=== PATIENT | male | born 1985 | race Hispanic/Latino ===

== ENCOUNTER 2023-07-09 08:20 | Day surgery (SDC) | payer BC, OTHER ==
[2023-07-06 15:46] LABS: Anion Gap 10.7 mEq/L (5.0-15.0); Potassium 3.7 mEq/L (3.5-5.1)
--- NOTE | 2023-07-08 14:31 | EKG ---
Test Date: 2023-07-06 Test Time: 15:21:39 [employer] Helper: MICA MEASUREMENT RESULTS: Intervals: Rate: 75 MS: 168 QRSD: 98 QT: 372 QTc: 415 [place]: P: 17 MS: 168 QRS: 51 T: 23 INTERPRETIVE STATEMENTS: Normal sinus rhythm Normal ECG No previous ECG available for comparison Electronically Signed On 07-08-23 14:24:31 CDT by Alan Newell
[2023-07-09] MEDS: NA CHLORIDE 0.9% 1,000 ML ONE (08:40)
[2023-07-09] MEDS ORDERED: FENTANYL CITR 100 MCG/2 ML ONE (09:58)
[2023-07-09] MEDS ORDERED: LIDOCAINE 2% MPF 5 ML VIAL ONE ×2 (09:58→10:37)
[2023-07-09] MEDS ORDERED: propofoL 200 MG/20 ML VIAL IV ONE ×2 (09:58→10:45)
[2023-07-09] MEDS ORDERED: MIDAZOLAM HCL 2 MG/2 ML INJ ONE (09:58)
[2023-07-09] MEDS ORDERED: KETOROLAC 30 MG/ML INJ ONE (09:58)
[2023-07-09] MEDS ORDERED: dexAMETHasone 10 MG/ML VIAL ONE (09:58)
[2023-07-09] MEDS ORDERED: ONDANSETRON 4 MG/2 ML VIAL ONE (09:58)
[2023-07-09] MEDS: CEFAZOLIN SODIUM 2 GM/VIAL ONE (10:30)
[2023-07-09] MEDS ORDERED: NS 0.9% VIAL 10 ML ONE ×2 (10:44→11:13)
[2023-07-09] MEDS ORDERED: NS 0.9% VIAL 20 ML ONE (10:45)
[2023-07-09] MEDS ORDERED: EPHEDRINE SULF 50 MG/ML VIAL ONE (11:01)
[2023-07-09] MEDS: BUPIVACAINE 0.25% PF 30 ML VIAL ONE (11:02)
--- NOTE | 2023-07-09 11:20 | P.OP ---
Preoperative diagnosis: Right Posterior Scapular Cyst Postoperative diagnosis: Right Posterior Scapular Cyst Primary procedure: Wide Local Excision of Right Posterior Scapular Cyst Anesthesia: GETA + Local Estimated blood loss: <1cc Specimen: Right Posterior Scapular Cyst Findings: Right Posterior Scapular Cyst 8cm x 5cm x 4cm Complications: None Transferred to: Recovery Room Condition: Good
[2023-07-09] MEDS: ALBUTEROL 2.5 MG/3 ML NEB SOL ONE (11:35)
[2023-07-09] MEDS: ONDANSETRON 4 MG/2 ML VIAL ONE (11:57)
[2023-07-09 12:01] VITALS: O2SAT 96
--- NOTE | 2023-07-09 12:37 | OP ---
Date of Procedure: 07/09/2023 Surgeon: Yasmany Munoz MD, Preoperative Diagnosis: Right posterior scapular cyst. Postoperative Diagnosis: Right posterior scapular cyst. Procedure Performed: Wide local excision of right posterior scapular cyst. Anesthesia: General endotracheal plus local with 0.25% Marcaine. Estimated Blood Loss: Less than 1 cc. Specimen: Right posterior scapular cyst. Findings: Right posterior scapular cyst approximately 8 cm x 5 cm x 4 cm. Complications: None. Disposition: Patient transferred to recovery room in good condition. Procedure In Detail: After informed consent was obtained, patient was brought to the operating room, prepped and draped in the usual sterile fashion after adequate anesthesia was achieved. I made an e lliptical incision for approximately 8 cm x 5 cm x 4 cm down to subcutaneous tissues with a 15 blade, circumferentially dissecting out an obviously ruptured epidermal inclusion cyst, which is down to th e deep adipose layers, but not including the muscular fascial plane. I circumferentially dissected t his out using a combination of electrocautery and sharp dissection, ultimately removing this and sent it off for pathologic examination. The area was copiously irrigated. Hemostasis was achieved with electrocautery. The area was irrigated once again and then the skin was partially reapproximated usi ng interrupted 3-0 nylon sutures and the central portion was packed with Vashe soaked Kerlix. Steril e dressing was placed over top. The patient tolerated the procedure without incident or complication , transferred to PACU in good condition. All counts were correct at the end of the case. PRAFUL/TED Voice ID: [id number] Report ID: [id number]
[2023-07-09 14:26] VITALS: BP 131/64; TEMP 96.2
== END 2023-07-09 13:25 | disposition home or self-care (01) ==
LOC: OR 08:20
PROVIDERS: ATTEND Surgery
PROC: 0JB00ZZ Excision of Scalp Subcutaneous Tissue and Fascia, Open Approach (ICD-10-PCS; principal; 2023-07-09 10:15)
DX: L72.0 Epidermal cyst (principal)
CPT/HCPCS: 93005; 80048; 36415; 82947 ×2; 88304; 11426; A4216 ×3; J2704 ×2; J7613; J2001 ×2; J2250; J3010; J1100; J2405 ×2; J7030